=== PATIENT | female | born 1995 | race Caucasian/White ===

== ENCOUNTER 2024-12-20 19:14 | Emergency (ER) | payer OTHER, SELFPAY ==
[2024-12-20 19:16] VITALS: BP 160/104; PULSE 99; RESP 18; TEMP 36.7; O2SAT 100; BMI 40.6
--- NOTE | 2024-12-20 20:42 | EX.ED.DYSGE1 ---
HPI History of Present Illness Chief Complaint: Anxiety PFSH PFS Medical History no medical history Allergy/AdvReac Type Severity Reaction Status Date / Time No Known Allergies Allergy Verified 12/20/24 19:19 Social History Smoking Status: Never smoker EXAM Physical Exam Const Vital Signs: 12/20/24 19:16 12/20/24 21:03 Temperature 98.0 F Temperature Source Temporal Pulse Rate 99 88 Respiratory Rate 18 18 Blood Pressure 160/104 H 147/87 H Blood Pressure Mean 122 107 Pulse Ox 100 98 Oxygen Delivery Method Room Air Room Air [facility] Narrative Medical decision making narrative: HISTORY OF PRESENT ILLNESS: 29-year-old female presents with concern for chest tightness, shortness of breath. She notes she had a significant traumatic event in which her 3-year-old choked on a chip. This caused difficult chest tightness emotional distress and shortness of breath. This has been an ongoing issue for last several months. The patient denies recent surgery in the last 4 weeks or immobilization in the last 3 days, denies previous diagnosis of DVT or PE, hemoptysis, unilateral leg swelling or malignancy with treatment the last 6 months or palliative. No estrogen use noted. Patient denies sudden onset of pain, no tearing sensation, no migratory symptoms, no new numbness, weakness or loss of sensation. Patient denies family history or personal history of Connective tissue disorders (Marfan's Syndrome, Jenise Danlos etc) REVIEW OF SYSTEMS: Pertinent positives: As per HPI Pertinent negatives: Syncope, leg swelling PHYSICAL EXAM: Nursing triage notes reviewed, Vital signs reviewed Constitutional: please see [facility] HENT: MMM Eyes: Pupils equal round and reactive to light, Extraocular muscles intact Neck: No stridor, no JVD, full neck ROM Lungs: Clear to auscultation, No wheezing or rales. No increased work of breathing, no conversational dyspnea, no accessory muscle use, no nasal flaring. No respiratory distress noted Heart: Regular rate and rhythm, No murmurs, No rubs and No gallops, 2+ distal pulses (radial, femoral, posterior tibial) in all extremities Abdomen: Soft, there is no tenderness, rigidity, rebound or guarding, no obvious peritoneal signs, no palpable pulsatile abdominal masses, no auscultated abdominal bruit : No CVAT Extremities: No edema Neuro: No new focal neurological deficits, cranial nerves II through XII intact, 5/5 strength in all present extremities. Intact sensation to light touch in all present extremities, 2+ reflexes bilateral patella tendons. Skin: No rash or lesions noted MEDICAL DECISION MAKING: Chief Complaint: Chest tightness, shortness of breath and anxiety MDM Narrative: The patient was initially hemodynamically stable, afebrile and nontoxic-appearing. Exam without focus of cardiopulmonary abnormality. I considered the following differential diagnosis: Arrhythmia, anemia, electro disturbance, PE, aortic dissection, pneumothorax, anxiety ALL IMAGES (IF OBTAINED) HAVE BEEN PERSONALLY REVIEWED AND INTERPRETED BY MYSELF. EKG with normal sinus rhythm, rate 86, normal axis, no intervals, no STEMI CBC leukocytosis suggestive of systemic inflammation, no anemia or thrombocytopenia BMP without evidence of significant electrolyte abnormalities, no anion gap, no acute kidney injury. High-sensitivity troponin is negative, no evidence of myocardial ischemia I have personally reviewed the patient's chest x-ray. Chest x-ray is unremarkable for pulmonary edema, pneumothorax, pneumonia or focal cardiopulmonary abnormality. Patient's initial evaluation was not consistent with a life-limiting etiology. While I considered pulmonary embolism as a potential etiology the patient has a low risk Wells score and as such I have a low suspicion for pulmonary embolism as a cause of the patient symptoms. The patient's history and physical exam not consistent with aortic dissection. It is more likely she is suffering supratentorial or anxiety related issue as evidenced by her improvement after antianxiety medicines. The patient and/or family, caregivers express understanding. The patient and/or family, caregivers agrees with the plan. Shared decision making: I will have a discussion with the patient and or visitors regarding risk/benefits of further testing or admission. They will be made aware of of the risk/benefits inherent in this decision they will be given the opportunity to voice understanding. Total critical care time today provided was at least 0 minutes. This excludes separately billable procedures. Critical care time (if documented) is secondary to the patient having high probability of clinically significant/life threatening deterioration in the patient's condition which required my urgent intervention. Impression: 1. Chest tightness 2. Anxiety Dispo: Discharge home This note was generated with [employer] dictation software. It may contain incorrect words, spelling, and punctuation that were not noted in review of the chart prior to signing. Lab Data Labs: Laboratory Results - last 24 hr 12/20/24 21:05 WBC 11.2 H RBC 5.17 Hgb 13.4 Hct 40.0 MCV 77.4 L MCH 25.9 L MCHC 33.5 RDW Std Deviation 39.5 RDW Coeff of Emma 14.3 Plt Count 253 MPV 10.3 Immature Gran % (Auto) 0.400 Neut % (Auto) 69.2 Lymph % (Auto) 23.0 [place] % (Auto) 5.1 Eos % (Auto) 1.9 Baso % (Auto) 0.4 Absolute Neuts (auto) 7.8 H Absolute Lymphs (auto) 2.58 Nucleated RBC % 0 Sodium 136 Potassium 4.5 Chloride 104 Carbon Dioxide 20.8 L Anion Gap 12 BUN 13 Creatinine 0.64 L Estim Creat Clear Calc 169.47 Est GFR (MDRD) Non-Af 124 BUN/Creatinine Ratio 19.9 Glucose 114 H Calcium 9.3 Troponin T High Sens < 6 Radiography Diagnostic Testing: Clinical Impression(s) from Imaging Studies Chest X-Ray 12/20/24 21:08 IMPRESSION: No Acute Findings. Reading Location: [facility] Discharge Plan Triage Chief Complaint: Anxiety ED Provider: Stanislav Schultz Dx/Rx/DC Orders Primary Care Provider: Care Physician,No Primary Referrals: NOT,DEFINED [Non-Staff] - Print Language: Faroese
--- NOTE | 2024-12-20 20:52 | EKG12_ITS ---
Test Reason : DYSRHYTHMIA Blood Pressure : */* mmHG Vent. Rate : 86 BPM Atrial Rate : 86 BPM P-R Int : 146 ms QRS Dur : 94 ms QT Int : 368 ms P-R-T Axes : 41 44 36 degrees QTcB Int : 440 ms Normal sinus rhythm Normal ECG Confirmed by CLARA LEY, CAMERON ([id number]), story editor MACI SOUZA ([id number]) on 12/21/2024 8:07:13 AM Referred By: Stanislav Schultz Confirmed By: CAMERON ELIZABETH MD
[2024-12-20] MEDS: LORazepam 1 MG Tablet PO (20:58)
[2024-12-20 21:03] VITALS: BP 147/87; PULSE 88; RESP 18; O2SAT 98
--- NOTE | 2024-12-20 21:08 | RAD_ITS ---
PROCEDURE: CHEST 1 VIEW (PORTABLE) 12/20/2024 REASON FOR EXAM: 29-year-old female, chest tightness and shortness of breath. Resolved. TECHNIQUE: Frontal view of the chest. COMPARISON: None. FINDINGS: Hardware: None. Heart: The heart size is normal. Lungs: No focal consolidation, pleural effusion or pneumothorax. Bones: The bones are unremarkable. RAD/Chest 1 View (Portable) IMPRESSION: No Acute Findings. Reading Location: [id number]
[2024-12-20 21:16] LABS: Absolute Lymphocyte Count 2.58 X10^3/uL (0.83-4.51); Absolute Neutrophil Count 7.8 X10^3/uL (2.0-7.7); Basophil# 0.04 X10^3/uL; Basophil% 0.4 % (0-1); Eosinophil# 0.21 X10^3/uL; Eosinophils% 1.9 % (0-5); Hemoglobin 13.4 g/dL (12.0-15.0); Lymphocyte # 2.58 X10^3/ul (0.83-4.51); Mean Corp Hgb Conc 33.5 g/dL (32-36); Mean Corpuscular Hgb 25.9 pg (27.0-32.0); Mean Corpuscular Volume 77.4 fL (81-99); Mean Platelet Vol. 10.3 fl (6.2-12.0); Monocyte# 0.57 X10^3/uL; Monocyte% 5.1 % (0-10); NRBC Flagged by Analyzer 0 % (0-5); Neutrophil # 7.79 X10^3/uL (2.7-7.7); Neutrophil % 69.2 % (47-70); Platelet Count 253 K/mm3 (150-450); RBC Distribution Width CV 14.3 % (11.6-14.6); RBC Distribution Width SD 39.5 fl (35.1-43.9); Red Blood Count 5.17 M/mm3 (4.2-5.4); White Blood Count 11.2 K/mm3 (4.4-11.0)
[2024-12-20 22:27] LABS: Anion Gap 12 (5-15); BUN 13 mg/dL (4-19); BUN/Creat Ratio 19.9 RATIO (10-20); Calcium,Total 9.3 mg/dL (7.6-11.0); Carbon Dioxide 20.8 mmol/L (21.0-32.0); Chloride 104 mmol/L (98-108); Creatinine, Serum 0.64 mg/dL (0.70-1.20); EST Glomerular Filtration Rate 124 (>60); Estimated Creatinine Clearance 169.47 ml/min (50-250); Glucose 114 mg/dL (70-99); Potassium 4.5 mmol/L (3.3-5.1); Sodium Level 136 mmol/L (133-145); Troponin T High Sensitivity < 6 ng/L (<=14)
[2024-12-20 23:00] VITALS: BP 152/98; PULSE 86; RESP 18; TEMP 36.6; O2SAT 100
== END 2024-12-20 23:01 | disposition home or self-care (01) ==
PROVIDERS: Emergency Provider Emergency Medicine; Referring Provider Emergency Medicine; Visit Provider Emergency Medicine
DX: R07.89 Other chest pain (principal); F41.9 Anxiety disorder, unspecified
CPT/HCPCS: 71045; 80048; 84484; 85025; 93005; 99284